=== PATIENT | male | born 1995 | race Caucasian/White ===

== ENCOUNTER 2022-10-14 20:13 | Emergency (ER) | payer BC, SELFPAY ==
[2022-10-14 20:25] VITALS: BP 154/105; PULSE 82; RESP 16; TEMP 36.9; O2SAT 99; BMI 28.5
[2022-10-14 20:32] VITALS: BP 156/94; PULSE 85; RESP 18; TEMP 36.9; O2SAT 98; BMI 29.1
--- NOTE | 2022-10-14 20:52 | ED_ITS ---
HPI - Dental/Oral General: Chief complaint: Dental/Oral Stated complaint: dental pain Time Seen by Provider: 10/14/22 20:37 History of Present Illness: Patient is a 27-year-old male comes to the ED with dental pain. Symptoms started approximately 4 days ago. Dental pain comes from tooth #9. He saw his dentist 3 days ago and he was started on a course of amoxicillin. He states that the dental pain and swelling has not improved after 3 days of amoxicillin. He has an appointment with the dentist to get tooth and dental abscess removed on October 19. He says his pain currently is very mild and he took a Tylenol before coming to the ED. Denies any other symptoms. Teeth map: 1. Dental pain from tooth #9 Associated symptoms: Denies fever(s) or odynophagia Review of Systems Const: Denies: fever(s), chills or fatigue Eyes: Denies: change in vision or eye discomfort ENMT: Reports: dental pain; Denies: throat pain, odynophagia, nasal discharge or nasal congestion Card: Denies: chest pain, palpitations, edema, swelling of feet/ankles, dyspnea on exertion or orthopnea Resp: Denies: dyspnea, productive cough or non-productive cough GI: Denies: abdominal pain, nausea, vomiting, diarrhea, constipation or hematochezia : Denies: flank pain, difficulty urinating, dysuria or hematuria Musc: Denies: neck pain, back pain or extremity swelling Skin/Breast: Denies: rash or new lesions Neuro: Denies: headache(s), numbness in extremities or weakness in extremities PFS ED PFSH: Medical History No pertinent family history Surgical History No pertinent past surgical history Physical Exam Const: COMMON NORMALS: no acute distress, patient oriented x3 and alert GENERAL APPEARANCE: cooperative and comfortable HENMT: COMMON NORMALS: normocephalic HEAD & SCALP: normocephalic MOUTH: Normal oral and palatal mucosa present TEETH & GINGIVA: Yes abnormal tooth and associated gingiva upper left central incisor with associated gingival edema and Yes poor dentition THROAT: posterior oropharynx normal and uvula midline Neck/C-Spine: COMMON NORMALS: supple GENERAL: Yes normal visual inspection Resp: COMMON NORMALS: normal respiratory effort, No retractions, No use of accessory muscles and clear to auscultation bilaterally AUSCULTATION: clear to auscultation bilaterally Cardio: COMMON NORMALS: regular rate, regular rhythm, S1 normal heart sound present, S2 normal heart sound present, No gallops present (Cardio), No clicks present (Cardio), No murmurs present (Cardio) and Peripheral pulses 2+ throughout RATE: regular rate RHYTHM: regular rhythm HEART SOUNDS: S1 normal heart sound present and S2 normal heart sound present PERIPHERAL PULSES: Peripheral pulses 2+ throughout GI: COMMON NORMALS: Normal to inspection, nondistended, normoactive bowel sounds present, Soft to palpation, non-tender and no masses PALPATION: Yes Soft to palpation : COMMON NORMALS: Yes no CVA tenderness BLADDER/KIDNEY EXAM: Yes no CVA tenderness Back/Pelvis: COMMON NORMALS: no CVA tenderness Extremity: COMMON NORMALS: normal to inspection Neuro: COMMON NORMALS: patient oriented x3 SENSORIUM/ORIENTATION: Yes alert GAIT: Yes Normal gait present Skin: GENERAL SKIN EXAM: dry skin Course Vital Signs: Vital signs: Vital Signs Temperature 98.4 F 10/14/22 20:32 Pulse Rate 85 10/14/22 20:32 Respiratory Rate 16 10/14/22 21:07 Blood Pressure 156/94 10/14/22 20:32 Pulse Oximetry 98 10/14/22 20:32 Oxygen Delivery Me thod 10/14/22 20:25 MDM - Dental/Oral Medical Decision Making Patient is a 27-year-old male comes to the ED with dental pain. Patient appears nontoxic in no acute distress or pain. He currently has an appointment with dentist this coming . He has been taking amoxicillin for the past c ouple days and has not been helping. Denies any trouble breathing or swallowing. He appears nontoxic and in no acute distress. He has poor dentition with some gingival edema surrounding upper left incisor. Patient was given a dose of clindamycin here and sent home with a prescription for clindam ycin. Told to follow-up with his dentist as scheduled appointment this coming week. Return to ED precautions given. Patient understood and agreed with plan. Discharge Plan Discharge Patient Disposition: Home Clinical Impression: Dental infection Condition: Stable Prescriptions: New clindamycin HCl 150 mg capsule 300 mg PO QID 7 Days Qty: 56 0RF Discharge Orders: Discharge ED (Routine); Ordered 10/14/22 Ordered By: Marshall Wright Referrals: El Roach MD [Primary Care Provider] - Discharge Diet: Regular Discharge Activity: Increase activity as tolerated Patient Instructions: Dental Abscess (ED) Activity Restrictions/Additional Instructions: Follow-up with dentist at your scheduled appointment this coming for further management of dental pain. Take medications as prescribed. Continue taking your previously prescribed antibiotic as well. return to the ER or your medical provider if condition worsens. Please read and understand discharge instructions. Thank you for choosing [facility] for your healthcare needs today. Please realize this is an emergency room and that we are providing you with a medical screening exam and this may not be complete and all inclusive of all the testing and or work up that you may need to determine your ailment or severity of your illness. It is very important that you follow up as instructed or that you return to the Emergency Department should you have concerns or if your condition changes or worsens in any way. Coding Level of Care Code ED Chief Relay Tester for Yonatan Fwd Exam Comprehensive
[2022-10-14] MEDS: clindamycin 150 mg Capsule 300 MG PO (21:02)
[2022-10-14 21:07] VITALS: RESP 16
== END 2022-10-14 21:05 | disposition home or self-care (01) ==
PROVIDERS: Emergency Provider Physician Assistant; PCP Family Medicine
DX: K04.7 Periapical abscess without sinus (principal)
CPT/HCPCS: 99283

== ENCOUNTER → 2024-07-11 15:15 | Outpatient (BNVA) | payer OTHER, SELFPAY | PROVIDERS: PCP Family Medicine; Visit Provider Family Medicine | DX: I10 Essential (primary) hypertension (principal) | CPT/HCPCS: 80053; 80061; 85025 ==

== ENCOUNTER → 2024-07-14 15:10 | Outpatient (BNVA) | payer OTHER, SELFPAY | PROVIDERS: PCP Family Medicine; Visit Provider Family Medicine | DX: R74.01 Elevation of levels of liver transaminase levels (principal) | CPT/HCPCS: 80074; 82977 ==

== ENCOUNTER → 2024-10-30 09:06 | Outpatient (BNVA) | payer OTHER, SELFPAY | PROVIDERS: PCP Family Medicine; Visit Provider Family Medicine | DX: R74.01 Elevation of levels of liver transaminase levels (principal); F41.9 Anxiety disorder, unspecified; I10 Essential (primary) hypertension; F10.20 Alcohol dependence, uncomplicated | CPT/HCPCS: 80053; 80061 ==